=== PATIENT | female | born 1980 | race Caucasian/White ===

== ENCOUNTER 2017-10-22 11:35 | Emergency (ER) | payer BC ==
[~2017-10-22] VITALS: Ht 152.4 cm; Wt 76.0 kg
[2017-10-22 11:42] VITALS: BP 130/80; PULSE 82; RESP 17; TEMP 98.3; O2SAT 98
--- NOTE | 2017-10-22 13:04 | PD ---
HPI Chief Complaint: Activities Attendant Problem/Complaint Time Seen by Provider: 12:48 Travel History International Travel<30 days: No Contact w/Intl Traveler<30days: No Traveled to known affect area: No History of Present Illness HPI 37-year-old female presents to the emergency room requesting STD check. Patient states she had sex with someone she should not have a few weeks ago because she has a drug problem. States since then she has had yellow, foul- smelling vaginal discharge. She has not done anything about it. States that for she had some dysuria but that has gone away. She does report some vaginal pain. Denies any significant abdominal pain, fever, chills, nausea, vomiting. Reports history of depression and anxiety. PFSH Past Medical History ?: Unknown Social History Tobacco Use: Yes Allergies-Medications (Allergen,Severity, Reaction): Coded Allergies: No Known Allergies (Unverified , 10/22/17) Review of Systems Except as stated in HPI: all other systems reviewed are Neg Physical Exam Narrative GENERAL: Well-nourished, well-developed female in no acute distress. Afebrile. Ambulatory SKIN: Focused skin assessment warm/dry. HEAD: Normocephalic. EYES: No scleral icterus. No injection or drainage. NECK: Supple, trachea midline. No JVD or lymphadenopathy. CARDIOVASCULAR: Regular rate and rhythm without murmurs, gallops, or rubs. RESPIRATORY: Breath sounds equal bilaterally. No accessory muscle use. GENITOURINARY: Examined in the presence of a nurse. Normal external genitalia without lesions or erythema. Vaginal vault without blood or drainage. Cervical os was closed without drainage. No cervical motion tenderness. Uterus nontender and nonenlarged. Bilateral adnexa nontender without masses. Data Data Last Documented VS Vital Signs Date Time Temp Pulse Resp B/P (MAP) Pulse Ox O2 Delivery O2 Flow Rate FiO2 10/22/17 11:42 98.3 82 17 130/80 (97) 98 Orders Orders Gc And Chlamydia Pcr (10/22/17 13:05) Wet Prep Profile (10/22/17 13:05) Ua Includes Microscopic (10/22/17 13:05) Ed Urine Pregnancytest Poc (10/22/17 13:05) Azithromycin Powd Pack (Zithromax Powd P (10/22/17 13:15) Ceftriaxone Inj (Rocephin Inj) (10/22/17 13:15) Lidocaine 1% Inj (50 Ml) (Xylocaine 1% I (10/22/17 13:15) Lidocaine 1% Inj (Xylocaine 1% Inj) (10/22/17 13:31) Labs Laboratory Tests Test 10/22/17 13:15 Urine Color YELLOW Urine Turbidity CLEAR Urine pH 5.5 Urine Specific [place] 1.017 Urine Protein NEG mg/dL Urine Glucose (UA) NEG mg/dL Urine Ketones NEG mg/dL Urine Occult Blood NEG Urine Nitrite NEG Urine Bilirubin NEG Urine Urobilinogen LESS THAN 2.0 MG/DL Urine Leukocyte Esterase NEG Urine RBC LESS THAN 1 /hpf Urine WBC LESS THAN 1 /hpf Urine Squamous Epithelial Cells <1 /hpf Urine Bacteria RARE /hpf Clue Cells (Wet Prep) PRESENT Vaginal Trichomonas (Wet Prep) NONE SEEN Vaginal Yeast (Wet Prep) NONE SEEN MDM Medical Decision Making Medical Screen Exam Complete: Yes Emergency Medical Condition: Yes Medical Record Reviewed: Yes Differential Diagnosis STD, vaginosis, trichomonas, UTI Narrative Course 37-year-old female presents to the emergency requesting STD check. States she recently had sex with a person for crack. She has been having foul-smelling, yellow vaginal discharge since then. Denies any abdominal pain, nausea, vomiting, fever, chills, and significant dysuria. Abdomen soft, nontender. No adnexal tenderness. No cervical motion tenderness. UA is negative. Wet prep shows clue cells. Patient treated empirically for gonorrhea and chlamydia. Counseled on following up with health department for full STD panel test. She was discharged with prescription for Flagyl and told to return for worsening symptoms. She understands and agrees to plan. Diagnosis Primary Impression: Possible exposure to STD Additional Impression: Bacterial vaginosis [facility] Additional Instructions: Flagyl as directed, until gone. Do not drink alcohol while taking this medication. Follow-up with a primary care physician. Return for worsening symptoms. Scripts Metronidazole (Flagyl) 500 Mg Tab 500 MG PO BID for Infection for 7 Days, #14 TAB 0 Refills Prov: Danny Husain MD 10/22/17 Disposition: 01 DISCHARGE HOME Condition: Stable Yumiko Beltre Oct 22, 2017 13:04
[2017-10-22] MEDS ORDERED: LIDOCAINE HCL 1% 50 ML VIAL IM ONE (13:15)
[2017-10-22] MEDS ORDERED: AZITHROMYCIN PWD FOR SUSP 1 GM PACKET PO ONE (13:15)
[2017-10-22] MEDS ORDERED: cefTRIAXone 250 MG VIAL IM ONE (13:15)
[2017-10-22] MEDS ORDERED: LIDOCAINE HCL 1% 20 ML VIAL ONE (13:31)
[2017-10-22 13:47] LABS: BACTERIA, URINE RARE /hpf; BILIRUBIN, URINE NEG (NEG); BLOOD, URINE NEG (NEG); GLUCOSE,URINE NEG (NEG); KETONE, URINE NEG (NEG); NITRITE,URINE NEG (NEG); PH, URINE 5.5 (5.0-8.5); SQUAMOUS EPITHELIAL CELL URINE <1 /hpf (0-5); URINE COLOR YELLOW (YELLW/STRAW); URINE LEUKOCYTE ESTERASE NEG (NEG)
[2017-10-22] MEDS ORDERED: METR-1 PO (14:00)
== END 2017-10-22 14:08 | disposition home or self-care (01) ==
LOC: NEPD 11:35
DX: N76.0 Acute vaginitis (principal); B96.89 Other specified bacterial agents as the cause of diseases classified elsewhere; Z72.0 Tobacco use
CPT/HCPCS: 81001; 84703; 87210; 87491; 87591; 96372; 99283; J0696